=== PATIENT | female | born 2000 | race Caucasian/White ===

== ENCOUNTER 2020-08-06 09:07 | Emergency (ER) | payer OTHER, SELFPAY ==
--- NOTE | 2020-08-06 09:10 | ED.GENADULT ---
HPI - General Adult General Chief complaint: Upper Respiratory Infection Stated complaint: cough/ear pain/stomach cramping Time Seen by Provider: 08/06/20 09:10 Source: patient Mode of arrival: ambulatory Limitations: no limitations History of Present Illness HPI narrative: 20-year-old female patient presents to the [facility] with complaints of cold symptoms for the past 4 days. Patient states this started with some stomach cramping and diarrhea for about 2 days and then moved into a mild cough. Denies any shortness of breath or chest pain. Patient states she is also had a stuffy nose, runny nose a slight sore throat. Patient denies any fevers body aches or chills. Patient states she has not received her Covid vaccine yet at this time. Patient denies being around anybody with Covid that she is aware of and denies having Covid within the past 2 months. Patient states she has been taking [id number] NyQuil for her symptoms. Related Data Home Medications Medication Instructions Recorded Confirmed etonogestrel [Nexplanon] 1 implant SUBDERMAL ONCE 05/23/19 05/23/19 lamotrigine 08/06/20 Allergies Allergy/AdvReac Type Severity Reaction Status Date / Time No Known Allergies Allergy Verified 05/23/19 14:34 Review of Systems Review of Systems: Narrative: CONSTITUTIONAL: Denies fever, chills, or sweats. EYES: Denies visual changes, redness, or discharge. ENT: Positive rhinorrhea, congestion, sore throat, denies otalgia. CARDIOVASCULAR: Denies chest pain, palpitations, or edema. RESPIRATORY: Positive mild nonproductive cough, denies dyspnea. GASTROINTESTINAL: Denies abdominal pain, nausea, vomiting, positive diarrhea. GENITOURINARY: Denies dysuria or hematuria. SKIN: Denies rash or itching. MUSCULOSKELETAL: Denies back pain, joint pain, or myalgia. NEUROLOGIC: Denies headache, numbness, or weakness. PSYCHIATRIC: Denies anxiety or depression. [facility] Past Medical History Medical History Healthy adult Surgical History Surgical History No pertinent past surgical history Social History Social History Smoking status: Never smoker Comments At the time of my signature I agree with nursing past medical history, surgical, social, and family history. There is no relevant family history pertinent to the presenting complaint. Exam Narrative: Exam Narrative: GENERAL: Well-appearing, well-nourished, and in no acute distress. HEAD: Normocephalic, atraumatic. EYES: PERRLA and EOMI. ENT: Nares clear, no rhinorrhea or epistaxis. Mucous membranes moist. Posterior pharynx with slight erythema but no tonsil enlargement, no exudates or lesions present. Bilateral TMs are clear no erythema or foreign bodies in the canal. NECK: Supple. No lymphadenopathy CHEST: Clear to auscultation. No respiratory distress. HEART: Regular rate and rhythm. No murmur heard. Normal peripheral pulses. ABDOMEN: Soft, nontender, nondistended, normal active bowel sounds. EXTREMITIES: Normal range of motion. No edema. SKIN: Warm, dry, no rash. NEURO: No focal deficits. Alert and oriented x3. Course Reevaluation(s) Reevaluation #1: Reevaluated patient after her test results had come back. Notified her that her flu was negative and her strep was negative. Discussed with her that her Covid test result was sent to the lab and we should have results as early as tomorrow or possibly . Discussed with patient that she can take [id number] medications to continue to help with her symptoms. Patient is requesting a refill on her inhaler just in case. Discussed with her I will send it over to her pharmacy. Patient verbalized understanding denies any other questions or concerns at this time. Date: 08/06/20 Time: 09:36 Vital Signs Vital signs: Vital Signs Temperature 37.3 C 08/06/20 0
[2020-08-06 09:17] VITALS: BP 140/87; PULSE 104; RESP 16; TEMP 37.3; O2SAT 99
[2020-08-07 16:23] LABS: SARS-CoV-2 RNA PCR Positive
== END 2020-08-06 09:42 | disposition home or self-care (01) ==
PROVIDERS: Emergency Provider Nurse Practitioner Family
DX: U07.1 COVID-19 (principal)
CPT/HCPCS: 87081; 87804; 87880; 99213; C9803; G0463; U0003; U0005